=== PATIENT | male | born 1975 | race Caucasian/White ===

== ENCOUNTER 2020-06-09 11:01 | Emergency (ER) | payer BC ==
[2020-06-09 11:15] VITALS: TEMP 97.9
[2020-06-09] MEDS ORDERED: MAG HYDROX/AL HYDROX/SIMETH 30 ML, HYOSCYAMINE ELIXIR 10 ML, LIDOCAINE VISCOUS 2% 10 ML PO STA ×3 (11:37)
[2020-06-09] MEDS ORDERED: FAMOTIDINE 20 MG/2 ML VIAL IV STA (11:37)
[2020-06-09] MEDS ORDERED: SODIUM CHLORIDE 0.9% 1,000 ML IV STA (11:37)
--- NOTE | 2020-06-09 11:49 | ED ---
General Adult HPI - General Chief complaint: Abdominal Pain Stated complaint: abd pain Time Seen by Provider: 06/09/20 11:23 Source: patient, RN notes reviewed Mode of arrival: ambulatory Limitations: no limitations - History of Present Illness Initial comments: 44-year-old male presents to the emergency department for a chief complaint of abdominal pain. Patient states he has had upper abdominal pain for about 3 days. Patient states the pain is more on the right side. Patient reports that standing up seems to make it worse. Denies eating making it worse. Denies nausea vomiting diarrhea. Denies alleviating factors. States the pain is constant in nature. States it is a sharp pain. Patient has not had any abdominal surgeries.Patient has no other complaints at this time including shortness of breath, chest pain, abdominal pain, nausea or vomiting, headache, or visual changes. - Related Data Home Medications Medication Instructions Recorded Confirmed Losartan/Hydrochlorothiazide 1 tab PO DAILY 06/09/20 06/09/20 [Losartan-Hctz 100-25 mg Tab] amLODIPine [Norvasc] 10 mg PO DAILY 06/09/20 06/09/20 predniSONE [Deltasone] See Taper PO DAILY 06/09/20 06/09/20 Allergies Allergy/AdvReac Type Severity Reaction Status Date / Time No Known Allergies Allergy Verified 06/09/20 13:08 Review of Systems ROS Statement: Those systems with pertinent positive or pertinent negative responses have been documented in the HPI. ROS Other: All systems not noted in ROS Statement are negative. Past Medical History Past Medical History: Hypertension History of Any Multi-Drug Resistant Organisms: None Reported Past Surgical History: Orthopedic Surgery Additional Past Surgical History / Comment(s): left wrist Past Psychological History: No Psychological Hx Reported Smoking Status: Never smoker Past Alcohol Use History: None Reported Past Drug Use History: None Reported General Exam Limitations: no limitations General appearance: alert, in no apparent distress Head exam: Present: atraumatic, normocephalic, normal inspection Eye exam: Present: normal appearance, PERRL, EOMI. Absent: scleral icterus, conjunctival injection, periorbital swelling ENT exam: Present: normal exam, mucous membranes moist Neck exam: Present: normal inspection, full ROM. Absent: tenderness, meningismus, lymphadenopathy Respiratory exam: Present: normal lung sounds bilaterally. Absent: respiratory distress, wheezes, rales, rhonchi, stridor Cardiovascular Exam: Present: regular rate, normal rhythm, normal heart sounds. Absent: systolic murmur, diastolic murmur, rubs, gallop, clicks GI/Abdominal exam: Present: soft, tenderness (right upper quadrant and epi gastric tenderness), normal bowel sounds. Absent: distended, guarding, rebound, rigid Back exam: Absent: CVA tenderness (R), CVA tenderness (L) Neurological exam: Present: alert Course Vital Signs 06/09/20 11:12 Temperature 97.9 F Pulse Rate 72 Respiratory 18 Rate Blood Pressure 125/78 O2 Sat by Pulse 97 Oximetry EKG Findings - EKG Comments: EKG Findings:: normal sinus rhythm, ventricular rate 67, AK interval 134, QTC 424 Medical Decision Making - Medical Decision Making Vitals are stable. CBC shows mild acidosis which is likely reactive. CMP shows minimal elevation in bilirubin. Very mild transaminitis. Lipase of 470 which is minimally elevated above normal. Abdomen ultrasound showed no shadowing mobile gallstones or ultrasound evidence for acute cholecystitis. At this time patient's pain is controlled. I did recommend he follow up with his primary care provider this week to repeat blood work including lipase. Patient is agreeable to this. He we'll try to get and Sunday. If he has worsening symptoms however he will return to the emergency room. I discussed this case with attending Dr. Horner who agrees with this assessment and treatment plan. - Lab Data Result diagrams: 06/09/20 11:46 06/09/20 11:46 Lab Results 06/09/20 06/09/20 06/09/20 Range/Units 11:46 11:46 11:46 WBC 10.9 H (3.8-10.6) k/uL RBC 5.20 (4.30-5.90) m/uL Hgb 15.0 (13.0-17.5) gm/dL Hct 43.9 (39.0-53.0) % MCV 84.6 (80.0-100.0) fL MCH 28.9 (25.0-35.0) pg MCHC 34.2 (31.0-37.0) g/dL RDW 14.4 (11.5-15.5) % Plt Count 228 (150-450) k/uL Neutrophils % 76 % Lymphocytes % 17 % Monocytes % 4 % Eosinophils % 2 % Basophils % 1 % Neutrophils # 8.3 H (1.3-7.7) k/uL Lymphocytes # 1.9 (1.0-4.8) k/uL Monocytes # 0.4 (0-1.0) k/uL Eosinophils # 0.2 (0-0.7) k/uL Basophils # 0.1 (0-0.2) k/uL Sodium 136 L (137-145) mmol/L Potassium 4.2 (3.5-5.1) mmol/L Chloride 103 (98-107) mmol/L Carbon Dioxide 26 (22-30) mmol/L Anion Gap 7 mmol/L BUN 18 (9-20) mg/dL Creatinine 0.84 (0.66-1.25) mg/dL Est GFR (CKD-EPI)AfAm >90 (>60 ml/min/1.73 sqM) Est GFR (CKD-EPI)NonAf >90 (>60 ml/min/1.73 sqM) Glucose 104 H (74-99) mg/dL Plasma Lactic Acid [place] (0.7-2.0) mmol/L Calcium 9.4 (8.4-10.2) mg/dL Total Bilirubin 1.4 H (0.2-1.3) mg/dL AST 45 (17-59) U/L ALT 67 H (4-49) U/L Alkaline Phosphatase 64 (38-126) U/L Troponin I (0.000-0.034) ng/mL Total Protein 6.8 (6.3-8.2) g/dL Albumin 4.2 (3.5-5.0) g/dL Amylase 46 (30-110) U/L Lipase 470 H (23-300) U/L Urine Color Yellow Urine Appearance Clear (Clear) Urine pH 6.0 (5.0-8.0) Ur Specific [place] 1.018 (1.001-1.035) Urine Protein Negative (Negative) Urine Glucose (UA) Negative (Negative) Urine Ketones Negative (Negative) Urine Blood Negative (Negative) Urine Nitrite Negative (Negative) Urine Bilirubin Negative (Negative) Urine Urobilinogen <2.0 (<2.0) mg/dL Ur Leukocyte Esterase Negative (Negative) 06/09/20 06/09/20 Range/Units 11:46 11:46 WBC (3.8-10.6) k/uL RBC (4.30-5.90) m/uL Hgb (13.0-17.5) gm/dL Hct (39.0-53.0) % MCV (80.0-100.0) fL MCH (25.0-35.0) pg MCHC (31.0-37.0) g/dL RDW (11.5-15.5) % Plt Count (150-450) k/uL Neutrophils % % Lymphocytes % % Monocytes % % Eosinophils % % Basophils % % Neutrophils # (1.3-7.7) k/uL Lymphocytes # (1.0-4.8) k/uL Monocytes # (0-1.0) k/uL Eosinophils # (0-0.7) k/uL Basophils # (0-0.2) k/uL Sodium (137-145) mmol/L Potassium (3.5-5.1) mmol/L Chloride (98-107) mmol/L Carbon Dioxide (22-30) mmol/L Anion Gap mmol/L BUN (9-20) mg/dL Creatinine (0.66-1.25) mg/dL Est GFR (CKD-EPI)AfAm (>60 ml/min/1.73 sqM) Est GFR (CKD-EPI)NonAf (>60 ml/min/1.73 sqM) Glucose (74-99) mg/dL Plasma Lactic Acid [place] 1.0 (0.7-2.0) mmol/L Calcium (8.4-10.2) mg/dL Total Bilirubin (0.2-1.3) mg/dL AST (17-59) U/L ALT (4-49) U/L Alkaline Phosphatase (38-126) U/L Troponin I <0.012 (0.000-0.034) ng/mL Total Protein (6.3-8.2) g/dL Albumin (3.5-5.0) g/dL Amylase (30-110) U/L Lipase (23-300) U/L Urine Color Urine Appearance (Clear) Urine pH (5.0-8.0) Ur Specific [place] (1.001-1.035) Urine Protein (Negative) Urine Glucose (UA) (Negative) Urine Ketones (Negative) Urine Blood (Negative) Urine Nitrite (Negative) Urine Bilirubin (Negative) Urine Urobilinogen (<2.0) mg/dL Ur Leukocyte Esterase (Negative) Disposition Clinical Impression: Abdominal pain Disposition: HOME SELF-CARE Condition: Good Instructions (If sedation given, give patient instructions): Abdominal Pain (ED) Additional Instructions: please follow up with primary care provider later this week. it would likely benefit to have repeat blood work including lipase. If you have any worsening symptoms however return to the emergency room. Is patient prescribed a controlled substance at d/c from ED?: No Referrals: Hardik Houser DO [Primary Care Provider] - 1-2 days Time of Disposition: 13:13
[2020-06-09 12:08] LABS: Appearance,Urine Clear (Clear); Bilirubin,Urine Negative (Negative); Blood,Urine Negative (Negative); Color,Urine Yellow; Glucose,Urine (UA) Negative (Negative); Ketones,Urine Negative (Negative); Leukocyte Esterase,Urine Negative (Negative); Nitrite,Urine Negative (Negative); Protein,Urine Negative (Negative); Specific Gravity,Urine 1.018 (1.001-1.035); Urobilinogen,Urine <2.0 mg/dL (<2.0)
[2020-06-09 12:09] LABS: Basophils # (A) 0.1 k/uL (0-0.2); Basophils % (A) 1 %; Eosinophils # (A) 0.2 k/uL (0-0.7); Eosinophils % (A) 2 %; HCT 43.9 % (39.0-53.0); Lymphocytes # (A) 1.9 k/uL (1.0-4.8); Lymphocytes % (A) 17 %; MCH 28.9 pg (25.0-35.0); MCHC 34.2 g/dL (31.0-37.0); MCV 84.6 fL (80.0-100.0); Mean Platelet Volume 8.4; Monocytes # (A) 0.4 k/uL (0-1.0); Monocytes % (A) 4 %; Neutrophils # (A) 8.3 k/uL (1.3-7.7); Neutrophils % (A) 76 %; Platelet Count 228 k/uL (150-450); RDW 14.4 % (11.5-15.5); WBC 10.9 k/uL (3.8-10.6)
[2020-06-09 12:18] LABS: ALT 67 U/L (4-49); AST 45 U/L (17-59); African American GFR (CKD) >90 (>60 ml/min/1.73 sqM); Albumin 4.2 g/dL (3.5-5.0); Alkaline Phosphatase 64 U/L (38-126); Amylase 46 U/L (30-110); Anion Gap 7 mmol/L; Blood Urea Nitrogen 18 mg/dL (9-20); Calcium 9.4 mg/dL (8.4-10.2); Carbon Dioxide 26 mmol/L (22-30); Chloride 103 mmol/L (98-107); Glucose 104 mg/dL (74-99); Non-African American GFR(CKD) >90 (>60 ml/min/1.73 sqM); Potassium 4.2 mmol/L (3.5-5.1); Sodium 136 mmol/L (137-145); Total Bilirubin 1.4 mg/dL (0.2-1.3); Total Protein 6.8 g/dL (6.3-8.2)
--- NOTE | 2020-06-09 12:47 | US ---
EXAMINATION TYPE: US abdomen limited DATE OF EXAM: 06/09/2020 COMPARISON: NONE CLINICAL HISTORY: ruq. right lateral abdominal pain x 2 days EXAM MEASUREMENTS: Liver Length: 21.2 cm Gallbladder Wall: 0.2 cm CBD: 0.2 cm Right Kidney: 12.0 x 7.7 x 5.8 cm Pancreas: hyperechoic Liver: hyperechoic to right renal cortex, enlarged which suggests fatty liver Gallbladder: wnl Evidence for sonographic Horn's sign: no CBD: wnl Right Kidney: hyperechoic parallel vessel mock noted mid near cortex suggests vessel wall calcifica tions Visualized portions of pancreas unremarkable, some portions obscured by overlying bowel gas and image s saved. Visualized liver is markedly heterogeneously hyperechoic. Evaluation for focal masses subopt imal due to the heterogeneous hyperechoic appearance. No intrahepatic or extra hepatic biliary dilata tion. Finding likely on basis of diffuse fatty infiltration. Gallbladder seen without shadowing mobil e gallstones. Limited images right kidney show no hydronephrosis. IMPRESSION: No shadowing mobile gallstones or ultrasound evidence for acute cholecystitis.
[2020-06-09] MEDS ORDERED: KETOROLAC 15 MG/ML 1 ML VIAL IVP STA (13:01)
[2020-06-09 13:27] VITALS: BP 143/86; PULSE 60; RESP 17
== END 2020-06-09 13:26 | disposition home or self-care (01) ==
LOC: EC 11:01
DX: R10.11 Right upper quadrant pain (principal); I10 Essential (primary) hypertension; E87.2 Acidosis; R79.89 Other specified abnormal findings of blood chemistry; R74.0 Nonspecific elevation of levels of transaminase and lactic acid dehydrogenase [LDH]; R74.8 Abnormal levels of other serum enzymes; Z79.899 Other long term (current) drug therapy; Z79.51 Long term (current) use of inhaled steroids
CPT/HCPCS: 36415; 93005; 80053; 82150; 83605; 83690; 84484; 85025; 81003; 76705; 99284; 96374; 96375; 96361; J1885

== ENCOUNTER → 2020-06-24 | Outpatient (CLI) | payer BC ==
--- NOTE | 2020-06-24 14:08 | CT ---
EXAMINATION TYPE: CT abdomen w con DATE OF EXAM: 06/24/2020 COMPARISON: None HISTORY: abnormal liver function tests, RUQ pain CT DLP: 2715.6 mGycm CONTRAST: CT scan of the abdomen and pelvis is performed with Oral Contrast and with IV Contrast, patient injec kari with 100 mL of Isovue 300. FINDINGS: LUNG BASES-: No visible nodule. No infiltrate. LIVER/GB: No calcified gallstones. Mild hepatic steatosis noted. No space occupying hepatic lesion. Biliary tree is of normal caliber. PANCREAS: No inflammation. No distinct mass. SPLEEN: No splenic enlargement. No lesion seen. ADRENALS: No nodule. No thickening. KIDNEYS/BLADDER: No hydronephrosis. No nephrolithiasis. Nonspecific hypoattenuating lesions of the left kidney. Urinary bladder grossly unremarkable. BOWEL: Normal appendix. Normal bowel caliber. No inflammation. LYMPH NODES: No greater than 1cm abdominal or pelvic lymph nodes are appreciated. AORTA: No significant abnormality. 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 OTHER: No significant additional abnormality is seen. IMPRESSION: 1. Mild hepatic steatosis. 2. Nonspecific hypoattenuating lesions of the left kidney. Consider ultrasound correlation.
== END | disposition home or self-care (01) ==
LOC: RADCTMAIN 12:57
PROVIDERS: ATTEND Family Medicine
DX: K76.0 Fatty (change of) liver, not elsewhere classified (principal); D72.828 Other elevated white blood cell count; R94.5 Abnormal results of liver function studies
CPT/HCPCS: 74160; Q9967

== ENCOUNTER → 2020-07-22 | Outpatient (CLI) | payer BC ==
--- NOTE | 2020-07-22 13:35 | US ---
EXAMINATION TYPE: US kidneys/renal and bladder DATE OF EXAM: 07/22/2020 COMPARISON: NONE CLINICAL HISTORY: R10.812 LUQ abd tenderness, R93.422 Abn radiologic. EXAM MEASUREMENTS: Right Kidney: 11.2 x 5.1 x 6.0 cm Left Kidney: 11.7 x 5.6 x 5.4 cm Morbidly obese patient. Right Kidney: scattered echogenic foci, may represent small stones Left Kidney: scattered echogenic foci largest may represent a staghorn calculus measuring 0.5 x 0.4 x 0.7cm, 2 probable cysts measuring 1.)1.2 x 1.2 x 1.4cm, 2.) 1.7 x 1.3 x 1.3cm Bladder: wnl There is no evidence for hydronephrosis at this point in time. No solid masses are identified. The urinary bladder is anechoic. Bilateral ureteral jets are seen. IMPRESSION: Nonobstructing nephrolithiasis identified.
== END | disposition home or self-care (01) ==
LOC: RADUSWWP 12:51
PROVIDERS: ATTEND Family Medicine
DX: N20.0 Calculus of kidney (principal)
CPT/HCPCS: 76770

== ENCOUNTER → 2021-07-08 | Outpatient (CLI) | payer BC ==
--- NOTE | 2021-07-08 07:51 | US ---
EXAMINATION TYPE: US kidneys/renal and bladder DATE OF EXAM: 07/08/2021 COMPARISON: CLINICAL HISTORY: R93.422 Abnormal radiologic findings on diagnostic. Follow up kidneys. Hx stones a nd cysts. No pain at this time. EXAM MEASUREMENTS: Right Kidney: 12.8 x 5.7 x 5.4 cm Left Kidney: 12.2 x 5.0 x 6.2 cm Right Kidney: Echogenic focus in upper pole = 0.6 cm. Cystic lesions seen with largest lateral pole = 1.1 x 1.2 x 0.9 cm. Left Kidney: Multiple echogenic foci seen, largest upper pole = 0.8 cm. Lateral inferior cystic lesi on = 1.6 x 2.0 x 1.8 cm. Mid hypoechoic circular lesion = 1.8 x 2.1 x 1.7 cm Bladder: distended, anechoic Right Jet seen No hydronephrosis. IMPRESSION: Bilateral nephrolithiasis. No hydronephrosis. There is a hypoechoic 1.8 x 2.1 cm lesion in the left k idney which does not meet the criteria of a simple cyst. Recommend follow-up MRI.
== END | disposition home or self-care (01) ==
LOC: RADUSWWP 07:01
PROVIDERS: ATTEND Family Medicine
DX: N20.0 Calculus of kidney (principal)
CPT/HCPCS: 76770

== ENCOUNTER → 2021-12-19 | Outpatient (CLI) | payer BC ==
[2021-12-19 13:57] LABS: African American GFR (CKD) >90 (>60 ml/min/1.73 sqM); Blood Urea Nitrogen 18 mg/dL (9-20); Non-African American GFR(CKD) >90 (>60 ml/min/1.73 sqM)
--- NOTE | 2021-12-19 21:59 | CT ---
EXAMINATION TYPE: CT abdomen wo/w con DATE OF EXAM: 12/19/2021 COMPARISON: Ultrasound dated 07/08/[address] dated 06/24/2020 HISTORY: renal cyst CT DLP: 3821.90 mGycm Automated exposure control for dose reduction was used. TECHNIQUE: Helical acquisition of images was performed from the lung bases through the top of iliac crest to include entire abdomen. CONTRAST: Performed with Oral Contrast and without and with IV Contrast, patient injected with 100 mL of Isovue 300. FINDINGS: The lesion in question is seen at the lateral aspect of the midpole of the left kidney. It measures 1 8 x 26 mm compared to 9 x 15 mm in June [address] CT scan. There is increase in its density of about 10-15 Hounsfield units in the postcontrast images which could represent pseudoenhancement however tung e mild enhancement cannot be excluded. The lesion is isodense to slightly hyperdense compared to the renal parenchyma in the noncontrast images demonstrating a density of about 35 Hounsfield units. Othe r scattered nonenhancing bilateral renal cysts without gross suspicious feature. Enlarged liver measuring 24.3 cm with suspected hepatic steatosis. No definite hepatic focal lesion i dentified. Unremarkable gallbladder. Bulky spleen measuring 17 cm along its transverse dimension. No splenic focal lesion. Fatty infiltration of the pancreatic head. Unremarkable adrenals and abdominal aorta. Duplication of IVC. Unremarkable stomach, duodenum and visualized small bowel. Scattered uncom plicated colonic diverticulosis. Normal appendix. No abdominal lymphadenopathy or ascites. Unremarkab le lung bases. Degenerative changes of the lower thoracic and lumbar spine. IMPRESSION: The left renal lesion in question has slightly increased in size as compared to June 2020 CT sca n and demonstrates mild enhancement as described above. This could represent a proteinaceous/hemorrha gic cyst with pseudoenhancement however a hypoenhancing renal lesion can't be excluded. Recommend fur ther MRI characterization. Other incidental findings as described above.
== END | disposition home or self-care (01) ==
LOC: RADCTMAIN 12:58
PROVIDERS: ATTEND Urology
DX: N28.89 Other specified disorders of kidney and ureter (principal)
CPT/HCPCS: 82565; 84520; 74170; 36415; Q9967

== ENCOUNTER → 2022-01-16 | Outpatient (CLI) | payer BC ==
--- NOTE | 2022-01-16 11:13 | MR ---
MR kidney with and without contrast HISTORY: Renal cyst, N 28.1 Multiplanar multisequence imaging obtained through the kidneys. Postcontrast images obtained followin g 15 cc Gadavist IV. Correlation to CT scan of the abdomen dated 12/19/2021 The dominant lesion in the left kidney shows T1 isointense appearance, T2 isointense appearance withi n the left kidney. The left renal mass at the midpole measures 2.6 cm. There is mild delayed enhancem ent noted. At the upper pole the right kidney there is a similar-appearing lesion measuring approximately 2 cm w ith some mild delayed enhancement, heterogeneous appearance, possible internal septations. At the low er pole of the right kidney anteriorly additional focus is present measuring only 13 to 14 mm showing similar signal characteristics. Multiple additional T1 hypointense, T2 hyperintense foci are scatter ed within the kidneys. No evident adrenal mass. The liver is enlarged measuring 25 cm from cephalad to caudal dimension, sig nal drop on out of phase imaging consistent with hepatic steatosis. 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 Spleen is enlarged. Aorta shows normal enhancement. No retroperiton eal adenopathy. Visualized pancreas within normal limits. No bowel obstruction. impression: Bilateral renal masses do not meet criteria for simple cysts. Hepatosplenomegaly, hepatic steatosis
== END | disposition home or self-care (01) ==
LOC: RADMRIMAIN 08:07
PROVIDERS: ATTEND Urology
DX: N28.89 Other specified disorders of kidney and ureter (principal); R16.2 Hepatomegaly with splenomegaly, not elsewhere classified; K76.0 Fatty (change of) liver, not elsewhere classified
CPT/HCPCS: 74183; A9585

== ENCOUNTER → 2022-04-14 | Outpatient (CLI) | payer BC ==
--- NOTE | 2022-04-14 14:13 | XR ---
EXAMINATION TYPE: XR chest 2V DATE OF EXAM: 04/14/2022 1:54 PM COMPARISON: None TECHNIQUE: XR chest 2V Frontal view of the chest. CLINICAL INDICATION:Male, 46 years old with history of PRE SURGICAL TESTING; FINDINGS: Lungs/Pleura: Low lung volumes are present. There is no evidence of pleural effusion, focal consolida tion, or pneumothorax. Pulmonary vascularity: Unremarkable. Heart/mediastinum: Cardiomediastinal silhouette is unremarkable. Musculoskeletal: No acute osseous pathology. IMPRESSION: No acute cardiopulmonary disease/process.
[2022-04-14 14:43] LABS: Appearance,Urine Clear (Clear); Bilirubin,Urine Negative (Negative); Blood,Urine Trace (Negative); Color,Urine Yellow; Glucose,Urine (UA) Negative (Negative); Ketones,Urine Negative (Negative); Leukocyte Esterase,Urine Negative (Negative); Mucus,Urine Rare /hpf; Nitrite,Urine Negative (Negative); PH, Urine 5.5 (5.0-8.0); Protein,Urine Trace (Negative); RBC,Urine 1 /hpf (0-5); Specific Gravity,Urine 1.021 (1.001-1.035); Squamous Epithelial Cell,Urine 1 /hpf (0-4); Urobilinogen,Urine <2.0 mg/dL (<2.0); WBC,Urine 2 /hpf (0-5)
[2022-04-14 18:02] LABS: African American GFR (CKD) 79.7 (60.0-200.0); Anion Gap 14.2 mmol/L (10.00-18.00); BUN/Creat Ratio 23.47 Ratio (12.00-20.00); Blood Urea Nitrogen 29.1 mg/dL (9.0-27.0); Calcium 9.8 mg/dL (8.7-10.3); Carbon Dioxide 24.3 mmol/L (20.0-27.5); Non-African American GFR(CKD) 68.8 (60.0-200.0); Potassium 3.6 mmol/L (3.5-5.5)
[2022-04-14 18:11] LABS: Basophils # (A) 0.09 X 10*3/uL (0.00-0.10); Basophils % (A) 0.9 %; HCT 45.1 % (39.6-50.0); HGB 15.6 g/dL (13.0-17.0); Immature Grans, Automated 0.5 %; Lymphocytes # (A) 1.72 X 10*3/uL (0.90-5.00); Lymphocytes % (A) 17.9 %; MCH 28.9 pg (27.0-32.0); MCHC 34.6 g/dL (32.0-37.0); MCV 83.7 fL (80.0-97.0); Mean Platelet Volume 11.4 fL (9.5-12.2); Monocytes # (A) 0.55 X 10*3/uL (0.20-1.00); Monocytes % (A) 5.7 %; NRBC Per 100 WBC 0 /100 WBCS (0.0-0.0); Platelet Count 236 X 10*3/uL (140-440); RBC 5.39 X 10*6/uL (4.40-5.60); RDW 13.7 % (11.5-14.5); WBC 9.61 X 10*3/uL (4.50-10.00)
== END | disposition home or self-care (01) ==
LOC: LABPAT 13:33
PROVIDERS: ATTEND Urology
DX: Z01.818 Encounter for other preprocedural examination (principal); D41.01 Neoplasm of uncertain behavior of right kidney; D41.02 Neoplasm of uncertain behavior of left kidney
CPT/HCPCS: 36415; 71046; 80048; 81001; 85025; 87086

== ENCOUNTER 2022-04-20 05:57 | Observation (INO) | payer BC ==
[2022-04-18 11:05] VITALS: BMI 43.4
--- NOTE | 2022-04-19 21:51 | P.HPIHPCON ---
History of Present Illness This is a 46 yo male with hx of bilateral renal masses, he presents today for robotic left sided partial nephrectomy. On review of imaging there is evidence of 2.6 cm left sided renal mass. I reviewed imaging and discussed with him option of robotic left sided partial nephrectomy. Discussed with him alternatives to partial nephrectomy. Discussed with him risk of bleeding, infection, injury to nearby organs, potential of conversion to radical nephrectomy, potential for needing diaylsis. Discussed also with him risk from anesthesia, he understood all the risk and agreed to proceed with left sided robotic partial nephrectomy, with plan to address the right side at a later date Consent for Procedure: I have explained the operation/procedure to the patient, including the risks, benefits, side effects, alternative therapies (including not receiving the proposed treatment or service), the likelihood of the patient achieving his/her goals, and potential recuperation problems for the procedure/sedation/analgesia, as well as any blood products, if indicated. I also explained to the patient the risks, benefits and side effects of the alternatives, as well as the risks related to not receiving the proposed procedure, care, treatment, or services. Past Medical History Past Medical History: Hypertension, Renal Disease, Sleep Apnea/CPAP/BIPAP Additional Past Medical History / Comment(s): Mass on kidneys. Uses CPAP. History of Any Multi-Drug Resistant Organisms: None Reported Past Surgical History: Orthopedic Surgery Additional Past Surgical History / Comment(s): left wrist Past Anesthesia/Blood Transfusion Reactions: No Reported Reaction Smoking Status: Never smoker - Past Family History Mother Family Medical History: Unable to Obtain Additional Family Medical History / Comment(s): adopted Medications and Allergies Home Medications Medication Instructions Recorded Confirmed Type Losartan/Hydrochlorothiazide 1 tab PO DAILY 06/09/20 04/18/22 History [Losartan-Hctz 100-25 mg Tab] amLODIPine [Norvasc] 10 mg PO DAILY 06/09/20 04/18/22 History Fexofenadine HCl [Aide Allergy] 180 mg PO DAILY PRN 04/18/22 04/18/22 History Ibuprofen [Motrin Ib] 400 mg PO Q8H PRN 04/18/22 04/18/22 History Allergies Allergy/AdvReac Type Severity Reaction Status Date / Time bee venom protein (honey bee) Allergy Anaphylaxis Verified 04/18/22 10:45 GUILLAUME Inhibitors AdvReac Cough Verified 04/18/22 11:00 Surgical - Exam - General no distress, no pain - Respiratory normal expansion, normal respiratory effort - Abdomen Abdomen: soft, non tender Assessment and Plan Assessment: -OR for left sided robotic partial nephrectomy
[~2022-04-20 05:57] MED LIST: DEXAMETHASONE SOD PHOSPHATE 4 MG/ML 1 ML VIAL IV ONE; HYDROmorphone 0.5 MG/0.5 ML SYRINGE IVP PRN; ONDANSETRON 4 MG/2 ML VIAL IVP ONE; ceFAZolin 3 GM in SODIUM CHLORIDE 0.9% 100 ML IVPB PRN; fentaNYL (PF) 50 MCG/ML 2 ML AMP IVP PRN
[2022-04-20] MEDS: LACTATED RINGERS 1,000 ML IV SCH ×2 (06:45→06:55)
[2022-04-20] MEDS: LIDOCAINE 1% (10MG/ML) FOR IV START INTRADERMA PRN ×2 (06:45→06:55)
[2022-04-20] MEDS ORDERED: fentaNYL (PF) 50 MCG/ML 2 ML AMP IV ONE ×2 (07:15→07:35)
[2022-04-20] MEDS: MIDAZOLAM 2 MG/2 ML VIAL IV PRN ×2 (07:15→07:35)
[2022-04-20] MEDS ORDERED: HYDROmorphone (PF) 1 MG/ML ONE (07:30)
[2022-04-20] MEDS ORDERED: ROCURONIUM 10 MG/ML (5 ML VIAL) IV ONE (07:30)
[2022-04-20] MEDS ORDERED: SUCCINYLCHOLINE CHLORIDE VIAL 200 MG/10 ML VIAL IV ONE (07:30)
[2022-04-20] MEDS ORDERED: LIDOCAINE 2% INJ 20 MG/ML (2 ML VIAL) ONE (07:30)
[2022-04-20] MEDS ORDERED: SODIUM CHLORIDE 0.9% (PF) 10 ML VIAL ONE (07:30)
[2022-04-20] MEDS ORDERED: PROPOFOL 10 MG/ML 20 ML VIAL IV ONE (07:30)
[2022-04-20] MEDS ORDERED: ROPIVACAINE 5 MG/ML 30 ML VIAL ONE (07:30)
[2022-04-20] MEDS ORDERED: MANNITOL 25% 12.5 GM/50 ML VIAL ONE (07:30)
[2022-04-20] MEDS ORDERED: GLYCOPYRROLATE 0.2 MG/ML 2 ML VIAL ONE (07:30)
[2022-04-20] MEDS ORDERED: NEOSTIGMINE 1 MG/ML 10 ML VIAL ONE (07:30)
[2022-04-20] MEDS ORDERED: HYDROmorphone 1 MG/ML 1 ML SYRINGE IVP PRN (07:53)
[2022-04-20] MEDS ORDERED: LORATADINE 10 MG TAB PO PRN (07:53)
[2022-04-20] MEDS ORDERED: BUPIVACAIN-EPI 0.25%-1:200,000 30 ML VIAL SQ ONE ×2 (08:13→10:21)
--- NOTE | 2022-04-20 09:18 | P.ANPRN ---
Procedure Note - Anesthesia - Nerve Block Performed Bilateral Erector Spinae Time Out Performed: Yes (07:15) Date of Procedure: 04/20/22 Procedure Start Time: :15 Procedure Stop Time: : Location of Patient: PreOp Indication: Acute Post-Operative Pain, Requested by Surgeon (DR Linda) Sedation Type: Sedate with meaningful contact maintained Preparation: Sterile Prep Position: Prone Catheter: None Needle Types: Pajunk Needle Gauge: 21 Ultrasound used to visualize needle placement: Yes Ultrasound used to observe medication spread: Yes Injectate: 0.5% Ropivacaine (see comment for volume) (15cc +10cc PF Normal saline each side) Blood Aspirated: No Pain Paresthesia on Injection Noted: No Resistance on Injection: Normal Image Stored and Saved: Yes Events: Uneventful and Well Tolerated
[2022-04-20] MEDS ORDERED: LACTATED RINGERS 1,000 ML IV ONE (10:13)
--- NOTE | 2022-04-20 10:58 | P.OP ---
Date of Procedure: 04/20/22 Preoperative Diagnosis: Left renal mass Postoperative Diagnosis: Same Procedure(s) Performed: Robotic-assisted laparoscopic partial nephrectomy on the left Implants: None Anesthesia: SHANEA Surgeon: Mark Linda Estimated Blood Loss (ml): 50 Pathology: other (manny) Condition: stable Disposition: PACU Indications for Procedure: This is a 46 yo male with hx of bilateral renal masses, he presents today for robotic left sided partial nephrectomy. On review of imaging there is evidence of 2.6 cm left sided renal mass. I reviewed imaging and discussed with him option of robotic left sided partial nephrectomy. Discussed with him alternatives to partial nephrectomy. Discussed with him risk of bleeding, infection, injury to nearby organs, potential of conversion to radical nephrectomy, potential for needing diaylsis. Discussed also with him risk from a nesthesia, he understood all the risk and agreed to proceed with left sided robotic partial nephrectomy, with plan to address the right side at a later date Operative Findings: Left renal mass Description of Procedure: The patient was taken to the operating room . General anesthesia was induced. She was prepped and draped in sterile fashion, and was placed in modified flank position . All pressure points were padded. The abdominal insufflation was achieved with the Veress needle. A 8 mm camera port was placed. Robotic trocars and pathologist assistant ports were placed under direct vision. The robot was docked into place. The colon was mobilized medially by incising along the white line of Toldt. The pancreas and the spleen was reflected off the kidney. Next the ureter was retracted anteriorly off the psoas muscle. Dissection proceeded cranially towards the renal hilum. 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 Next dissection was carried to the hilum, three renal arteries were identified, they were dissected in preparation for clamping. Next the kidney was brought down, the Gerota's fat was dissected off of the kidney, the tumor was identified, and the fat was cleaned off of the edges the tumor to clearly defined the tumor. Next the arteries were clamped using bulldog clamp. Next the tumor was dissected down sharply using the monopolar scissors. Point cautery was used that point of bleeding. Next the defect was closed in 2 layers using 3-0V lock for the inner layer and 2-0 V lock in interrupted fashion, sliding clip technique was used. Next a clamp were removed, total clamp time was 17 minutes. There was some area of oozing thus an additional stitch was placed which controlled bleeding. At this time the tumor bed was observed there was no evidence of further bleeding. Next hemostatic agents were placed. Gerota's was closed over the defect 30V lock.. Next a drain was placed through the lower port. Next the robot was undocked. Fascia was closed using #1 PDS, [id number] fashion Skin was closed with subcuticular sutures and dermabond. The patient was awoken from general anesthesia in stable condition. Please refer to the final pathology report for final diagnosis
[2022-04-20] MEDS: KETOROLAC 15 MG/ML 1 ML VIAL IVP SCH ×2 (15:11→20:21)
[2022-04-20] MEDS: HEPARIN SODIUM,PORCINE/PF 5,000 UNIT/0.5 ML SYRINGE SQ SCH (15:25)
[2022-04-20] MEDS: D5-0.45% NACL WITH KCL 20MEQ/L 1,000 ML IV SCH ×2 (15:25→21:36)
[2022-04-21] MEDS: KETOROLAC 15 MG/ML 1 ML VIAL IVP SCH ×2 (00:17→05:10)
[2022-04-21] MEDS: HEPARIN SODIUM,PORCINE/PF 5,000 UNIT/0.5 ML SYRINGE SQ SCH ×2 (00:18→07:29)
[2022-04-21] MEDS: D5-0.45% NACL WITH KCL 20MEQ/L 1,000 ML IV SCH (05:10)
[2022-04-21 07:54] VITALS: BP 111/72; PULSE 85; RESP 18; TEMP 97.6
[2022-04-21] MEDS ORDERED: HYDROcodone/APAP 5-325MG 1 EACH TAB PO PRN (08:03)
--- NOTE | 2022-04-21 08:04 | P.DS ---
Providers Date of admission: 04/20/22 23:49 Attending physician: Mark Linda MD Primary care physician: [facility] Course: The patient underwent a partial nephrectomy on the left. He did well post her to bleed. His vital signs are stable. The drainage is minimal. His urine output is good. His pain is under control. I will discontinue the IV drain and [place]. If he ambulates voids and his pain is under control be discharged home later today. Follow up with in the office in one week. Postoperative instructions been given. He has been given a prescription for [place]. Is been instructed to contact us at anytime problems. Patient Condition at Discharge: Good Plan - Discharge Summary Discharge Rx Participant: Yes New Discharge Prescriptions: New HYDROcodone/APAP 5-325MG [[place] 5-325] 1 tab PO Q4HR PRN #14 tab PRN Reason: Pain No Action amLODIPine [Norvasc] 10 mg PO DAILY Losartan/Hydrochlorothiazide [Losartan-Hctz 100-25 mg Tab] 1 tab PO DAILY Ibuprofen [Motrin Ib] 400 mg PO Q8H PRN PRN Reason: Pain Fexofenadine HCl [Aide Allergy] 180 mg PO DAILY PRN PRN Reason: allergy sx Discharge Medication List Losartan/Hydrochlorothiazide [Losartan-Hctz 100-25 mg Tab] 1 tab PO DAILY 06/09/20 [History] amLODIPine [Norvasc] 10 mg PO DAILY 06/09/20 [History] Fexofenadine HCl [Aide Allergy] 180 mg PO DAILY PRN 04/18/22 [History] Ibuprofen [Motrin Ib] 400 mg PO Q8H PRN 04/18/22 [History] HYDROcodone/APAP 5-325MG [[place] 5-325] 1 tab PO Q4HR PRN #14 tab 04/21/22 [Rx] Follow up Appointment(s)/Referral(s): Mark Linda MD [STAFF PHYSICIAN] - 1 Week Discharge Disposition: HOME SELF-CARE
[2022-04-21] MEDS ORDERED: LOSARTAN-HCTZ 50-12.5 MG 1 EACH TAB PO SCH (09:00)
[2022-04-21] MEDS ORDERED: amLODIPine 10 MG TAB PO SCH (09:00)
[2022-04-21 11:39] LABS: Basophils # (A) 0.03 X 10*3/uL (0.00-0.10); Basophils % (A) 0.3 %; Eosinophils # (A) 0 X 10*3/uL (0.04-0.35); Eosinophils % (A) 0 %; HCT 37.6 % (39.6-50.0); HGB 12.5 g/dL (13.0-17.0); Immature Grans, Automated 0.3 %; Lymphocytes # (A) 1.44 X 10*3/uL (0.90-5.00); Lymphocytes % (A) 12.4 %; MCH 28.8 pg (27.0-32.0); MCHC 33.2 g/dL (32.0-37.0); MCV 86.6 fL (80.0-97.0); Monocytes % (A) 8.6 %; NRBC Per 100 WBC 0 /100 WBCS (0.0-0.0); Neutrophils # (A) 9.06 X 10*3/uL (1.80-7.70); Neutrophils % (A) 78.4 %; Platelet Count 223 X 10*3/uL (140-440); RBC 4.34 X 10*6/uL (4.40-5.60); RDW 14.1 % (11.5-14.5); WBC 11.57 X 10*3/uL (4.50-10.00)
== END 2022-04-21 14:20 | disposition home or self-care (01) ==
LOC: OR 05:57 → 4SSUR 10:51 → OR 23:49 → 4SSUR 23:49
PROVIDERS: ADMIT Urology; ATTEND Urology
DX: N28.89 Other specified disorders of kidney and ureter (principal); C64.2 Malignant neoplasm of left kidney, except renal pelvis; I10 Essential (primary) hypertension; G47.30 Sleep apnea, unspecified; Z98.890 Other specified postprocedural states; Z79.899 Other long term (current) drug therapy; Z88.8 Allergy status to other drugs, medicaments and biological substances; Z91.030 Bee allergy status
CPT/HCPCS: 64999; 86900; 86901; 85025; 86850; 88342; 88307; 88341; 50543; G0378; C1762; J2250; J0330; J1100; J2710; J0690; J2405; J2150; J3010; J1170 ×2; J2795; J1885 ×2; J2704; J1644 ×2; J2001

== ENCOUNTER → 2022-06-28 | Outpatient (CLI) | payer BC ==
[2022-06-28 18:41] LABS: Basophils # (A) 0.06 X 10*3/uL (0.00-0.10); Basophils % (A) 0.8 %; Eosinophils # (A) 0.14 X 10*3/uL (0.04-0.35); Eosinophils % (A) 1.8 %; HCT 40.4 % (39.6-50.0); Immature Grans, Automated 0.8 %; Lymphocytes # (A) 1.48 X 10*3/uL (0.90-5.00); Lymphocytes % (A) 18.6 %; MCH 28.6 pg (27.0-32.0); MCHC 34.7 g/dL (32.0-37.0); MCV 82.6 fL (80.0-97.0); Mean Platelet Volume 11.5 fL (9.5-12.2); Monocytes # (A) 0.55 X 10*3/uL (0.20-1.00); Monocytes % (A) 6.9 %; NRBC Per 100 WBC 0 /100 WBCS (0.0-0.0); Neutrophils # (A) 5.67 X 10*3/uL (1.80-7.70); Neutrophils % (A) 71.1 %; Platelet Count 216 X 10*3/uL (140-440); RBC 4.89 X 10*6/uL (4.40-5.60); RDW 13.8 % (11.5-14.5); WBC 7.96 X 10*3/uL (4.50-10.00)
[2022-06-28 21:21] LABS: Appearance,Urine Clear (Clear); Bilirubin,Urine Negative (Negative); Blood,Urine Negative (Negative); Color,Urine Yellow (Yellow); Ketones,Urine Negative (Negative); Nitrite,Urine Negative (Negative); PH, Urine 5.5 (5.0-8.0); Specific Gravity,Urine 1.016 (1.001-1.030)
[2022-06-28 21:32] LABS: Bacteria,Urine None Seen /HPF (None Seen)
[2022-06-28 23:48] LABS: African American GFR (CKD) 72.6 (60.0-200.0); Anion Gap 14.2 mmol/L (10.00-18.00); BUN/Creat Ratio 15.3 Ratio (12.00-20.00); Blood Urea Nitrogen 20.5 mg/dL (9.0-27.0); Calcium 9.4 mg/dL (8.7-10.3); Carbon Dioxide 23.2 mmol/L (20.0-27.5); Non-African American GFR(CKD) 62.6 (60.0-200.0); Potassium 3.5 mmol/L (3.5-5.5)
== END | disposition home or self-care (01) ==
LOC: LABPAT 13:25
PROVIDERS: ATTEND Urology
DX: Z01.812 Encounter for preprocedural laboratory examination (principal); D41.01 Neoplasm of uncertain behavior of right kidney
CPT/HCPCS: 80048; 81001; 85025; 87086

== ENCOUNTER 2022-07-06 09:46 | Inpatient (IN) | payer BC ==
[2022-07-03 15:25] VITALS: BMI 44.7
[~2022-07-06 09:46] MED LIST changes: -DEXAMETHASONE SOD PHOSPHATE 4 MG/ML 1 ML VIAL IV ONE; -HYDROmorphone 0.5 MG/0.5 ML SYRINGE IVP PRN; -ONDANSETRON 4 MG/2 ML VIAL IVP ONE; -fentaNYL (PF) 50 MCG/ML 2 ML AMP IVP PRN
[2022-07-06] MEDS: LACTATED RINGERS 1,000 ML IV SCH (10:42)
[2022-07-06] MEDS ORDERED: MIDAZOLAM 2 MG/2 ML VIAL IVP ONE (10:51)
[2022-07-06] MEDS ORDERED: fentaNYL (PF) 50 MCG/ML 2 ML AMP IVP ONE ×2 (10:52)
[2022-07-06] MEDS ORDERED: ONDANSETRON 4 MG/2 ML VIAL ONE (11:23)
[2022-07-06] MEDS ORDERED: ONDANSETRON 4 MG/2 ML VIAL IVP ONE (11:24)
--- NOTE | 2022-07-06 11:24 | P.ANPRN ---
Procedure Note - Anesthesia - Nerve Block Performed Right Erector Spinae Single Date of Procedure: 07/06/22 Procedure Start Time: 10:50 Procedure Stop Time: 11:06 Location of Patient: PreOp Indication: Acute Post-Operative Pain Sedation Type: Sedate with meaningful contact maintained Preparation: Sterile Prep Position: Prone Needle Gauge: 21 Ultrasound used to visualize needle placement: Yes Ultrasound used to observe medication spread: Yes Blood Aspirated: No Pain Paresthesia on Injection Noted: No Resistance on Injection: Normal Image Stored and Saved: Yes Events: Uneventful and Well Tolerated (Ropivacaine 0.25%, 40 mls)
[2022-07-06] MEDS ORDERED: DEXAMETHASONE SOD PHOSPHATE 4 MG/ML 1 ML VIAL IVP ONE (11:25)
[2022-07-06] MEDS ORDERED: KETAMINE 10 MG/ML 20 ML VIAL ONE (11:42)
[2022-07-06] MEDS ORDERED: ROCURONIUM 10 MG/ML (5 ML VIAL) IV ONE (11:42)
[2022-07-06] MEDS ORDERED: SUCCINYLCHOLINE CHLORIDE 200 MG/10 ML VIAL IV ONE (11:42)
[2022-07-06] MEDS ORDERED: fentaNYL (PF) 50 MCG/ML 2 ML AMP ONE (11:42)
[2022-07-06] MEDS ORDERED: LIDOCAINE 2% INJ 20 MG/ML (2 ML VIAL) ONE (11:42)
[2022-07-06] MEDS ORDERED: MIDAZOLAM 2 MG/2 ML VIAL ONE (11:42)
[2022-07-06] MEDS ORDERED: PHENYLEPHRINE-0.9% NACL SYG 1,000 MCG/10 ML SYRINGE ONE (11:42)
[2022-07-06] MEDS ORDERED: GLYCOPYRROLATE 0.2 MG/ML 2 ML VIAL ONE (11:42)
[2022-07-06] MEDS ORDERED: MANNITOL 25% 12.5 GM/50 ML VIAL ONE (11:42)
[2022-07-06] MEDS ORDERED: SODIUM CHLORIDE 0.9% (PF) 10 ML VIAL ONE (11:42)
[2022-07-06] MEDS ORDERED: HYDROmorphone (PF) 1 MG/ML ONE (11:42)
[2022-07-06] MEDS ORDERED: PROPOFOL 10 MG/ML 20 ML VIAL IV ONE (11:42)
[2022-07-06] MEDS ORDERED: ROPIVACAINE 5 MG/ML 30 ML VIAL ONE (11:42)
[2022-07-06] MEDS ORDERED: NEOSTIGMINE 1 MG/ML 10 ML VIAL ONE (11:42)
[2022-07-06] MEDS ORDERED: ePHEDrine 50 MG/ML 1 ML VIAL ONE (11:42)
[2022-07-06] MEDS ORDERED: HYDROmorphone 1 MG/ML 1 ML SYRINGE IVP PRN (11:51)
--- NOTE | 2022-07-06 11:51 | P.HPIHPCON ---
History of Present Illness H&P Date: 07/06/22 Chief Complaint: right renal mass This is a 46 yo male with hx of bilateral renal masses, he presents today for robotic right sided partial nephrectomy. On review of imaging there is evidence of 2.0 cm right upper pole mass and 1.3 cm right lower pole mass. 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 I reviewed imaging and discussed with him option of robotic right sided partial nephrectomy. Discussed with him alternatives to partial nephrectomy. Discussed with him risk of bleeding, infection, injury to nearby organs, potential of conversion to radical nephrectomy, potential for needing diaylsis. Discussed also with him risk from anesthesia, he understood all the risk and agreed to proceed with right sided robotic partial nephrectomy, with plan to address the right side at a later date Consent for Procedure: I have explained the operation/procedure to the patient, including the risks, benefits, side effects, alternative therapies (including not receiving the proposed treatment or service), the likelihood of the patient achieving his/her goals, and potential recuperation problems for the procedure/sedation/analgesia, as well as any blood products, if indicated. I also explained to the patient the risks, benefits and side effects of the alternatives, as well as the risks related to not receiving the proposed procedure, care, treatment, or services. Past Medical History Past Medical History: Hypertension Additional Past Medical History / Comment(s): RENAL MASS History of Any Multi-Drug Resistant Organisms: None Reported Past Surgical History: Orthopedic Surgery Additional Past Surgical History / Comment(s): LEFT WRIST SURG. LEFT PARTIAL NEPHRECTOMY Past Anesthesia/Blood Transfusion Reactions: Postoperative Nausea & Vomiting (PONV) Past Psychological History: No Psychological Hx Reported Smoking Status: Never smoker Past Alcohol Use History: Occasional Past Drug Use History: None Reported - Past Family History Mother Family Medical History: Unable to Obtain Additional Family Medical History / Comment(s): adopted Medications and Allergies Home Medications Medication Instructions Recorded Confirmed Type Losartan/Hydrochlorothiazide 1 tab PO DAILY 06/09/20 07/06/22 History [Losartan-Hctz 100-25 mg Tab] amLODIPine [Norvasc] 10 mg PO DAILY 06/09/20 07/06/22 History Fexofenadine HCl [Aide Allergy] 180 mg PO DAILY PRN 04/18/22 07/06/22 History Allergies Allergy/AdvReac Type Severity Reaction Status Date / Time bee venom protein (honey bee) Allergy Anaphylaxis Verified 07/06/22 10:25 GUILLAUME Inhibitors AdvReac Cough Verified 07/06/22 10:25 Surgical - Exam Vital Signs Temp Pulse Resp BP Pulse Ox 98.1 F 73 16 146/85 98 07/06/22 10:28 07/06/22 10:28 07/06/22 10:28 07/06/22 10:28 07/06/22 10:28 Assessment and Plan Assessment: OR for right-sided robotic partial nephrectomy
[2022-07-06] MEDS ORDERED: LORATADINE 10 MG TAB PO PRN (11:53)
[2022-07-06] MEDS ORDERED: LACTATED RINGERS 1,000 ML IV ONE ×2 (13:32→15:21)
[2022-07-06] MEDS ORDERED: BUPIVACAINE (PF) 0.5% 30 ML VIAL SQ ONE ×2 (14:50)
[2022-07-06] MEDS: HEPARIN SODIUM,PORCINE/PF 5,000 UNIT/0.5 ML SYRINGE SQ SCH (17:14)
[2022-07-06] MEDS: D5-0.45% NACL WITH KCL 20MEQ/L 1,000 ML IV SCH (17:14)
[2022-07-06] MEDS: KETOROLAC 15 MG/ML 1 ML VIAL IVP SCH (17:14)
--- NOTE | 2022-07-06 17:23 | P.OP ---
Date of Procedure: 07/06/22 Preoperative Diagnosis: Right renal tumor Postoperative Diagnosis: Same Procedure(s) Performed: Robotic-assisted laparoscopic right partial nephrectomy, intraoperative ultrasound Implants: None Anesthesia: MCKENZIE Surgeon: Mark Linda Wind Turbine Design Engineer #1: Buster Castellanos Estimated Blood Loss (ml): 200 Pathology: other (Renal tumor 2) Condition: stable Disposition: PACU Indications for Procedure: This is a 46 yo male with hx of bilateral renal masses, he presents today for robotic right sided partial nephrectomy. On review of imaging there is evidence of 2.0 cm right upper pole mass and 1.3 cm right lower pole mass. 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 I reviewed imaging and discussed with him option of robotic right sided partial nephrectomy. Discussed with him alternatives to partial nephrectomy. Discussed with him risk of bleeding, infection, injury to nearby organs, potential of conversion to radical nephrectomy, potential for needing diaylsis. Discussed also with him risk from anesthesia, he understood all the risk and agreed to proceed with right sided robotic partial nephrectomy, with plan to address the right side at a later date Operative Findings: Endophytic right upper pole tumor, exophytic lower pole tumor Description of Procedure: The patient was taken to the operating room . General anesthesia was induced. He was prepped and draped in sterile fashion, and was placed in modified flank position . All pressure points were padded. The abdominal insufflation was achieved with the Veress needle. An 8 mm camera port was placed. Robotic trocars and casting assistant ports were placed under direct vision. a 5 mm liver retractor was placed. . The robot was docked into place. The colon was mobilized medially by incising along the white line of Toldt. Next the duodenum was kocherized. At this time the vena cava was exposed. Next the ureter was retracted anteriorly off the psoas muscle. Dissection proceeded cranially towards the renal hilum next the renal artery was identified, dissected in preparation for clamping. of note there was significant gerotal fat, next kidney was defatted. Both the upper and the lower pole tumors were identified. Of note there was some bleeding along the adrenal plan which was controlled using Surgicel. After the placement of the Surgicel no additional bleeding was visualized. At this time using the intraoperative ultrasound the tumor edges were marked. Next the renal artery was clamped by using 3 bulldog clamps. Next both tumors was excised sharply. The inner layer was closed with 3-0V lock, while the outer layer was closed with 2-0V lock in interrupted fashion. A sliding clip technique was used. At this time the clamp were removed, the total warm ischemia time was approximately 28 minutes. there was no evidence of bleeding. Next hemostatic agent were placed on both tumors beds. Next the OMAR drain was placed through the right lower quadrant port incision. Next the robot was undocked,. Specimen was removed through the casting assistant port. The casting assistant port was closed using the Rk Connors and using 0 Vicryl... Skin was closed with subcuticular sutures and dermabond. The patient was awoken from general anesthesia in stable condition. Please refer to the final pathology report for final diagnosis
[2022-07-07] MEDS: D5-0.45% NACL WITH KCL 20MEQ/L 1,000 ML IV SCH ×2 (00:53→07:40)
[2022-07-07] MEDS: KETOROLAC 15 MG/ML 1 ML VIAL IVP SCH ×3 (00:53→13:06)
[2022-07-07] MEDS: HEPARIN SODIUM,PORCINE/PF 5,000 UNIT/0.5 ML SYRINGE SQ SCH ×2 (00:57→07:40)
[2022-07-07 01:43] VITALS: RESP 18
[2022-07-07] MEDS: LACTATED RINGERS 1,000 ML IV SCH (05:41)
[2022-07-07 08:15] VITALS: BP 119/71; PULSE 67; TEMP 98.1
[2022-07-07] MEDS ORDERED: LOSARTAN-HCTZ 50-12.5 MG 1 EACH TAB PO SCH (09:00)
[2022-07-07] MEDS ORDERED: amLODIPine 10 MG TAB PO SCH (09:00)
[2022-07-07 09:08] LABS: Basophils # (A) 0.01 X 10*3/uL (0.00-0.10); Basophils % (A) 0.1 %; Eosinophils # (A) 0 X 10*3/uL (0.04-0.35); Eosinophils % (A) 0 %; HCT 38.3 % (39.6-50.0); HGB 12.9 g/dL (13.0-17.0); Immature Grans, Automated 0.4 %; Lymphocytes # (A) 0.94 X 10*3/uL (0.90-5.00); Lymphocytes % (A) 9.6 %; MCH 28.7 pg (27.0-32.0); MCHC 33.7 g/dL (32.0-37.0); MCV 85.1 fL (80.0-97.0); Mean Platelet Volume 11.6 fL (9.5-12.2); Monocytes # (A) 0.72 X 10*3/uL (0.20-1.00); Monocytes % (A) 7.4 %; NRBC Per 100 WBC 0 /100 WBCS (0.0-0.0); Neutrophils # (A) 8.08 X 10*3/uL (1.80-7.70); Neutrophils % (A) 82.5 %; Platelet Count 193 X 10*3/uL (140-440); RDW 14.2 % (11.5-14.5); WBC 9.79 X 10*3/uL (4.50-10.00)
--- NOTE | 2022-07-07 09:08 | P.DS ---
Providers Date of admission: 07/06/22 09:46 Attending physician: Mark Linda MD Primary care physician: Hard[facility] Course: This is a 46 yo male that underwent robotic right sided partial nephrectomy on 07/06. please see op note dated 07/06 for surgery details. He was admitted to the hospital post operatively. He was discharged home on POD #1. His barton catheter and OMAR drain was removed prior to discharge. At time of discharge he was tolerating diet, ambulating and pain was controlled Plan - Discharge Summary Discharge Rx Participant: Yes New Discharge Prescriptions: New HYDROcodone/APAP 5-325MG [[place] 5-325] 1 tab PO Q4HR PRN 3 Days #18 tab PRN Reason: Pain No Action amLODIPine [Norvasc] 10 mg PO DAILY Losartan/Hydrochlorothiazide [Losartan-Hctz 100-25 mg Tab] 1 tab PO DAILY Fexofenadine HCl [Aide Allergy] 180 mg PO DAILY PRN PRN Reason: allergy sx Discharge Medication List Losartan/Hydrochlorothiazide [Losartan-Hctz 100-25 mg Tab] 1 tab PO DAILY 06/09/20 [History] amLODIPine [Norvasc] 10 mg PO DAILY 06/09/20 [History] Fexofenadine HCl [Aide Allergy] 180 mg PO DAILY PRN 04/18/22 [History] HYDROcodone/APAP 5-325MG [[place] 5-325] 1 tab PO Q4HR PRN 3 Days #18 tab 07/07/22 [Rx] Activity/Diet/Wound Care/Special Instructions: No heavy lifting or straining You may shower in 24 hours Eat small meals avoid heavy meals and greasy food
== END 2022-07-07 15:26 | disposition home or self-care (01) | DRG 658 ==
LOC: 2ORMAIN 09:46 → 4SSUR 15:47
PROVIDERS: ADMIT Urology; ATTEND Urology
PROC: 0TB04ZZ Excision of Right Kidney, Percutaneous Endoscopic Approach (ICD-10-PCS; principal; 2022-07-06 11:30)
PROC: 8E0W4CZ Robotic Assisted Procedure of Trunk Region, Percutaneous Endoscopic Approach (ICD-10-PCS; principal; 2022-07-06 11:30)
DX: C64.1 Malignant neoplasm of right kidney, except renal pelvis (principal); Z90.5 Acquired absence of kidney; Z88.8 Allergy status to other drugs, medicaments and biological substances; Z91.030 Bee allergy status; Z79.899 Other long term (current) drug therapy
CPT/HCPCS: 64999; 85025; 86850; 86900; 86901; 88307

== ENCOUNTER → 2024-03-25 | Outpatient (CLI) | payer BC ==
--- NOTE | 2024-03-25 10:19 | XR ---
EXAMINATION TYPE: XR wrist complete LT DATE OF EXAM: 03/25/2024 8:54 AM CLINICAL INDICATION:Male, 48 years old with history of [id number] LT WRIST PAIN; [facility] COMPARISON: None TECHNIQUE: XR wrist complete LT; examined in the Frontal, navicular, lateral, and oblique. FINDINGS: No acute osseous pathology, joint dislocation, or joint effusion. No evidence of any soft tissue swelling is seen. Mild multifocal degeneration with joint space narrowing osteophyte formation . IMPRESSION: 1. No acute osseous pathology. 2. 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
== END | disposition home or self-care (01) ==
LOC: RADXRYALE 08:45
PROVIDERS: ATTEND Physician Assistant Medical
DX: M24.132 Other articular cartilage disorders, left wrist (principal)